=== PATIENT | male | born 1950 | race Caucasian/White ===

== ENCOUNTER 2018-12-04 16:59 | Emergency (ER) | payer MEDICARE ==
--- OUTSIDE RECORDS SUMMARY | 2018-12-04 17:22 | XMS REPORT | Continuity of Care Document ---
:1950 External Reference #:[id number] Author Name AMY Zamorano (transmitted by agent of provider Amol Woody M.D.) Address [address] [place] [address] Care Team Providers Name Role Phone Amol Woody MD - Family Medicine Care Team Information Principal Military Analyst [phone] Problems Active Problems Provider Date Muscle pain Amol Woody M.D. Onset: 05/09/2016 Mixed hyperlipidemia Amol Woody M.D. Onset: 03/13/2018 Essential hypertension Amol Woody M.D. Onset: 03/13/2018 Social History Type Date Description Comments Sex Unknown Tobacco Use Start: Unknown Nonsmoker Tobacco Use Start: Unknown End: Former Cigarette Smoker 1 Unknown Pack Daily Smoking Status Reviewed: 12/04/18 Former Cigarette Smoker 1 Pack Daily ETOH Use Rare Recreational Drug Use Denies Drug Use Tobacco Use Start: Unknown End: Patient is a former smoker Unknown Exercise Type/Frequency Exercises regularly Allergies, Adverse Reactions, Alerts Description No Known Drug Allergies Medications Active Medications SIG Qnty Indications Ordering Provider Date Rosuvastatin Calcium 1 by mouth 90tabs Amol Woody, 03/13/2018 5mg every day M.D. Tablets Metoprolol Succinate 1 by mouth Unknown ER every day 25mg Tablets ER 24HR Tamsulosin HCL 1 by mouth Unknown 0.4mg every day Capsules Aspirin Ec 1 by mouth Unknown 81mg Tablets every day DR History Medications Doxycycline Hyclate 2 by mouth x 1 2caps M79.1 Amol Woody, 2018 - dose M.D. 12/04/2018 100mg Capsules Immunizations Description No Information Available Vital Signs Date Vital Result Comment 12/04/2018 3:53pm BP Systolic 110 mmHg BP Diastolic 70 mmHg Heart Rate 66 /min Body Temperature 97.9 F Respiratory Rate 18 /min O2 % BldC Oximetry 98 % Weight 188.00 lb 03/13/2018 8:02am BP Systolic 136 mmHg BP Diastolic 80 mmHg Heart Rate 60 /min Body Temperature 98.1 F Respiratory Rate 16 /min Height 70 inches 5'10" Weight 191.00 lb BMI (Body Mass Index) 27.4 kg/m2 Results Test Date Facility Test Result H/L Range Note Laboratory test finding 10/23/2018 [facility] PSA Diagnostic 2.617 ng/mL 0-4.0 1 1 Serum levels of PSA measured using the [employer] DXI Hybritech immunoassay should not be interpreted as absolute evidence of the presence or absence of disease. The PSA value should be used in conjunction with other pertinent clinical diagnostic procedures. The values obtained with different assay methods or kits cannot be used interchangeably. Procedures Date Code Description Status 03/05/2013 15182260 Colonoscopy Completed Medical Devices Description No Information Available Encounters Description No Information Available Assessments Date Code Description Provider 12/04/2018 R07.89 Other chest pain AMY Zamorano Plan of Treatment 12/04/2018 - Valarie Han, PAR07.89 Other chest painComments:Sent to [facility] Emergency Room for further evaluation. Patient was offered an ambulance but declined in agreeance to go straight to the Emergency Room. Report was given to [facility] ER physician.Risks of not complying with this plan were discussed with patient including .AllComments:PCMHMedication Management Patient Understands medications he's taking? Yes Are there Barriers to Adherence? No Has the patient been asked about herbal supplements and therapies, and OTC meds? Yes Care Plan1. Patient has been queried about patient's goals/preferences and functional/lifestyle goals at relevant visits. Yes If relevant, describe: N/A2. Treatment goals as explained to the patient: above3. Are there barriers to meeting treatment goals? No If Yes , please describe:4. Self-Management goals as described to the patient: Yes As always, we strongly encourage a healthy diet and making physical activity a part of your every day life. If you have questions about how or where to start, please contact the office. Functional Status Description No Information Available Mental Status Description No Information Available Referrals Description No Information Available
[2018-12-04 17:48] LABS: ABS Eosinophils 0.4 10^3/ul (0-0.6); ABS Lymphocytes 1.7 10^3/ul (1.0-4.8); ABS Monocytes 0.8 10^3/ul (0-0.8); ABS Neutrophils 3.2 10^3/ul (1.5-7.7); Eosinophil % 6.6 %; Hematocrit 45 % (42-52); Hemoglobin 15.5 g/dL (14.0-18.0); Lymphocyte % 27.7 %; Mean Corpuscular HGB Conc 34 g/dL (31-36); Mean Corpuscular Hemoglobin 32 pg (27-31); Mean Corpuscular Volume 93 fL (80-94); Nucleated Red Blood Cells % 0.1; Platelet Count 187 10^3/uL (150-450); Red Blood Count 4.91 10^6 /uL (4.18-5.48); Red Cell Distribution Width 13 % (10-15); White Blood Count 6.1 10^3/uL (3.5-10.8)
[2018-12-04 17:53] LABS: INR 0.98 (0.82-1.09)
[2018-12-04 18:10] LABS: Albumin 4.2 g/dL (3.2-5.2); Albumin/Globulin Ratio 1.7 (1-3); BUN/Creatinine Ratio 18.3 (8-20); Calcium 8.9 mg/dL (8.6-10.3); EGFR African American 85.9 (>60); Globulin 2.5 g/dL (2-4); Potassium 4.7 mmol/L (3.5-5.0); Total Bilirubin 0.8 mg/dL (0.2-1.0); Total Protein 6.7 g/dL (6.4-8.9)
--- NOTE | 2018-12-04 20:47 | ED ---
Throat Pain/Nasal Congestion - HPI Summary HPI Summary: Patient complains of intermittent throat pain 1 month. Pain is worse with exertion, worse when carrying something. History of heartburn. Denies trauma, fever, cough, CP, SOB, N/V/V abdominal pain, change in urine, change in BM. Medical history CAD with cardiac stent 1 placed 7 years ago. Former smoker. - History of Current Complaint Chief Complaint: EDChestPainROMI Time Seen by Provider: 12/04/18 20:11 Hx Obtained From: Patient Onset/Duration: Gradual Onset, Lasting Weeks Associated Signs And Symptoms: Positive: Negative Cough: None - Allergies/Home Medications Allergies/Adverse Reactions: Allergies Allergy/AdvReac Type Severity Reaction Status Date / Time No Known Allergies Allergy Verified 06/27/12 08:31 Home Medications: Home Medications Rosuvastatin Calcium 20 mg PO DAILY 12/04/18 [History Confirmed 12/04/18] PMH/Surg Hx/FS Hx/Imm Hx Endocrine/Hematology History: Denies: Hx Anticoagulant Therapy - plavix, Hx Blood Disorders, Hx Blood Transfusions, Hx Bone Marrow Disease, Hx Diabetes, Hx Systemic Lupus Erythematosus, Hx Sickle Cell Disease, Hx Thyroid Disease, Hx Anemia, Hx Unexplained Bleeding, Other Endocrine/Hematological Disorders Cardiovascular History: Reports: Hx Angina, Hx Coronary Artery Disease, Hx Hypercholesterolemia, Other Cardiovascular Problems/Disorders - stent placement a year and a half ago Denies: Hx Aneurysm, Hx Angioplasty, Hx Auto Implanted Cardiovert Defib, Hx Cardiac Arrest, Hx Cardiomegaly, Hx Congenital Heart Disease, Hx Congestive Heart Failure, Hx Deep Vein Thrombosis, Hx Hypotension, Hx Hypertension, Hx Myocardial Infarction, Hx Pacemaker/ICD, Hx Peripheral Vascular Disease, Hx Rheumatic Fever, Hx Syncope, Hx Valvular Heart Disease Respiratory History: Reports: Hx Seasonal Allergies - mild Denies: Hx Asthma, Hx Chronic Bronchitis, Hx Chronic Obstructive Pulmonary Disease (COPD), Hx Cystic Fibrosis, Hx Lung Cancer, Hx Pleural Effusion, Hx Pneumonia, Hx Pulmonary Edema, Hx Pulmonary Embolism, Hx Sleep Apnea GI History: Denies: Hx Cirrhosis, Hx Crohn's Disease, Hx Diverticulosis, Hx Gall Bladder Disease, Hx Gastroesophageal Reflux Disease, Hx Gastrointestinal Bleed, Hx Hiatal Hernia, Hx Irritable Bowel, Hx Jaundice, Hx Obstructive Bowel, Hx Ileostomy, Hx Pyloric Stenosis, Hx Ulcer, Other GI Disorders History: Denies: Hx Acute Renal Failure, Hx Benign Prostatic Hyperplasia, Hx Chronic Renal Failure, Hx Dialysis, Hx Kidney Infection, Hx Kidney Stones, Other Problems/Disorders Musculoskeletal History: Reports: Hx Bursitis - shoulder left hx of, Hx Tendonitis - bilat elbows Denies: Hx Arthritis, Hx Back Problems, Hx Congenital Bone Abnormalities, Hx Fibromyalgia, Hx Gout, Hx Orthopedic Injury, Hx Osteoporosis, Hx Scoliosis, Other Musculoskeletal History Sensory History: Reports: Hx Contacts or Glasses Denies: Hx Cataracts, Hx Eye Injury, Hx Eye Prosthesis, Hx Glaucoma, Hx Macular Degeneration, Hx Vision Problem, Hx Deafness, Hx Hearing Aid, Hx Hearing Problem, Other Sensory Impairments Opthamlomology History: Reports: Hx Contacts or Glasses Denies: Hx Cataracts, Hx Eye Injury, Hx Eye Prosthesis, Hx Glaucoma, Hx Macular Degeneration, Hx Vision Problem, Other Sensory Impairments Psychiatric History: Denies: Hx Anxiety, Hx Attention Deficit Hyperactivity Disorder, Hx Eating Disorder, Hx Depression, Hx Panic Disorder, Hx Post Traumatic Stress Disorder, Hx Inpatient Treatment, Hx Community Mental Health Tx, Hx Schizophrenia, Hx Bipolar Disorder, Hx Suicide Attempt, Hx of Violent Episodes Against Others, Hx Substance Abuse, Other Psychiatric Issues/Disorders - Surgical History Surgery Procedure, Year, and Place: cardiac stent 2010 - pt unable to locate stent cardhernia repair 2006tonsillectomy as child,. growth removed anterior chest,hernia repair in 2004 Hx Anesthesia Reactions: No Infectious Disease History: No Infectious Disease History: Reports: Hx Hepatitis - Hepatitis A Denies: Hx Clostridium Difficile, Hx Human Immunodeficiency Virus (HIV), Hx Shingles, Hx Tuberculosis, Traveled Outside the [place] in Last 30 Days - Family History Known Family History: Positive: Non-Contributory - Social History Alcohol Use: Weekly Alcohol Amount: 1/ week Substance Use Type: Reports: None Smoking Status (MU): Former Smoker Type: Cigarettes Length of Time of Smoking/Using Tobacco: 40 years intermittently Have You Smoked in the Last Year: No Review of Systems Constitutional: Negative Eyes: Negative Positive: Sore Throat Cardiovascular: Negative Respiratory: Negative Gastrointestinal: Negative Genitourinary: Negative Musculoskeletal: Negative Skin: Negative Neurological: Negative Psychological: Normal All Other Systems Reviewed And Are Negative: Yes Physical Exam Triage Information Reviewed: Yes Vital Signs On Initial Exam: Initial Vitals Temp Pulse Resp BP Pulse Ox 97.5 F 57 20 143/76 100 12/04/18 17:07 12/04/18 17:07 12/04/18 17:07 12/04/18 17:07 12/04/18 17:07 Vital Signs Reviewed: Yes Appearance: Positive: Well-Appearing Skin: Positive: Warm Head/Face: Positive: Normal Head/Face Inspection Eyes: Positive: Normal ENT: Positive: Normal ENT inspection Neck: Positive: Supple Respiratory/Lung Sounds: Positive: Clear to Auscultation Cardiovascular: Positive: Normal Abdomen Description: Positive: Nontender Musculoskeletal: Positive: Normal Neurological: Positive: Normal Psychiatric: Positive: Normal AVPU Assessment: Alert - Dougherty Coma Scale Best Eye Response: 4 - Spontaneous Best Motor Response: 6 - Obeys Commands Best Verbal Response: 5 - Oriented Coma Scale Total: 15 Procedures - Sedation Patient Received Moderate/Deep Sedation with Procedure: No Diagnostics - Vital Signs Vital Signs Temp Pulse Resp BP Pulse Ox 12/04/18 19:07 98.3 F 63 17 125/74 99 12/04/18 17:07 97.5 F 57 20 143/76 100 - Laboratory Lab Results: Lab Results 12/04/18 12/04/18 12/04/18 Range/Units 17:41 17:41 17:41 WBC 6.1 (3.5-10.8) 10^3/uL RBC 4.91 (4.18-5.48) 10^6 /uL Hgb 15.5 (14.0-18.0) g/dL Hct 45 (42-52) % MCV 93 (80-94) fL MCH 32 H (27-31) pg MCHC 34 (31-36) g/dL RDW 13 (10-15) % Plt Count 187 (150-450) 10^3/uL MPV 7.0 L (7.4-10.4) fL Neut % (Auto) 52.7 % Lymph % (Auto) 27.7 % [place] % (Auto) 12.6 % Eos % (Auto) 6.6 % Baso % (Auto) 0.4 % Absolute Neuts (auto) 3.2 (1.5-7.7) 10^3/ul Absolute Lymphs (auto) 1.7 (1.0-4.8) 10^3/ul Absolute Monos (auto) 0.8 (0-0.8) 10^3/ul Absolute Eos (auto) 0.4 (0-0.6) 10^3/ul Absolute Basos (auto) 0.0 (0-0.2) 10^3/ul Absolute Nucleated RBC 0.0 10^3/ul Nucleated RBC % 0.1 INR (Anticoag Therapy) 0.98 (0.82-1.09) Sodium 138 (135-145) mmol/L Potassium 4.7 (3.5-5.0) mmol/L Chloride 106 (101-111) mmol/L Carbon Dioxide 29 (22-32) mmol/L Anion Gap 3 (2-11) mmol/L BUN 19 (6-24) mg/dL Creatinine 1.04 (0.67-1.17) mg/dL Est GFR ( Amer) 85.9 (>60) Est GFR (Non-Af Amer) 71.0 (>60) BUN/Creatinine Ratio 18.3 (8-20) Glucose 93 (70-100) mg/dL Calcium 8.9 (8.6-10.3) mg/dL Total Bilirubin 0.80 (0.2-1.0) mg/dL AST 17 (13-39) U/L ALT 11 (7-52) U/L Alkaline Phosphatase 68 (34-104) U/L Troponin I 0.00 (<0.04) ng/mL Total Protein 6.7 (6.4-8.9) g/dL Albumin 4.2 (3.2-5.2) g/dL Globulin 2.5 (2-4) g/dL Albumin/Globulin Ratio 1.7 (1-3) 12/04/18 Range/Units 19:58 WBC (3.5-10.8) 10^3/uL RBC (4.18-5.48) 10^6 /uL Hgb (14.0-18.0) g/dL Hct (42-52) % MCV (80-94) fL MCH (27-31) pg MCHC (31-36) g/dL RDW (10-15) % Plt Count (150-450) 10^3/uL MPV (7.4-10.4) fL Neut % (Auto) % Lymph % (Auto) % [place] % (Auto) % Eos % (Auto) % Baso % (Auto) % Absolute Neuts (auto) (1.5-7.7) 10^3/ul Absolute Lymphs (auto) (1.0-4.8) 10^3/ul Absolute Monos (auto) (0-0.8) 10^3/ul Absolute Eos (auto) (0-0.6) 10^3/ul Absolute Basos (auto) (0-0.2) 10^3/ul Absolute Nucleated RBC 10^3/ul Nucleated RBC % INR (Anticoag Therapy) (0.82-1.09) Sodium (135-145) mmol/L Potassium (3.5-5.0) mmol/L Chloride (101-111) mmol/L Carbon Dioxide (22-32) mmol/L Anion Gap (2-11) mmol/L BUN (6-24) mg/dL Creatinine (0.67-1.17) mg/dL Est GFR ( Amer) (>60) Est GFR (Non-Af Amer) (>60) BUN/Creatinine Ratio (8-20) Glucose (70-100) mg/dL Calcium (8.6-10.3) mg/dL Total Bilirubin (0.2-1.0) mg/dL AST (13-39) U/L ALT (7-52) U/L Alkaline Phosphatase (34-104) U/L Troponin I 0.00 (<0.04) ng/mL Total Protein (6.4-8.9) g/dL Albumin (3.2-5.2) g/dL Globulin (2-4) g/dL Albumin/Globulin Ratio (1-3) Result Diagrams: 12/04/18 17:41 12/04/18 17:41 Lab Statement: Any lab studies that have been ordered have been reviewed, and results considered in the medical decision making process. EENT Course/Dx - Course Course Of Treatment: Patient complains of intermittent throat pain 1 month. Pain is worse with exertion, worse when carrying something. History of heartburn. Denies trauma, fever, cough, CP, SOB, N/V/V abdominal pain, change in urine, change in BM. Medical history CAD with cardiac stent 1 placed 7 years ago. Former smoker. Vital signs within normal limits. Labs unremarkable. Serial troponins negative. EKG sinus rhythm, rate of 58, partial RBBB. Patient advised to follow up with ENT. Patient understands and approves of plan. - Diagnoses Provider Diagnoses: Throat pain, Heart burn Discharge ED - Sign-Out/Discharge Documenting (check all that apply): Patient Departure - Discharge Plan Condition: Stable Disposition: HOME Prescriptions: Omeprazole 20 mg PO DAILY 30 Days #30 capsule. Patient Education Materials: Gastroesophageal Reflux Disease (ED) Referrals: Amol Woody MD [Primary Care Provider] - Cristian Licea MD [Medical Doctor] - Adán Cardona DO [Medical Doctor] - Livia Avila MD [Medical Doctor] - Additional Instructions: Take omeprazole daily for heartburn symptoms. Follow up with ENT Dr. Licea for further evaluation of recurrent throat pain. Follow-up with your fiction and nonfiction author Dr. Cardona for further evaluation of increasing shortness of breath with exertion. - Billing Disposition and Condition Condition: STABLE Disposition: Home - Attestation Statements Provider Attestation: I was available for consult. This patient was seen by the SALLIE. The patient was not presented to, seen by, or examined by me. Antwon Harper MD
[2018-12-04 20:59] VITALS: BP 143/82
== END 2018-12-04 21:00 | disposition home or self-care (01) ==
LOC: ED 16:59
DX: R07.0 Pain in throat (principal); R12 Heartburn; I25.10 Atherosclerotic heart disease of native coronary artery without angina pectoris; E78.00 Pure hypercholesterolemia, unspecified; Z95.5 Presence of coronary angioplasty implant and graft; Z87.891 Personal history of nicotine dependence; Z79.82 Long term (current) use of aspirin; Z79.899 Other long term (current) drug therapy
CPT/HCPCS: 36415; 80053; 84484; 85025; 85610; 93005; 99282

== ENCOUNTER → 2019-03-07 08:07 | Day surgery (SDC) | payer MEDICARE ==
[~2019-03-07 08:07] MED LIST: Diazepam TAB(*) 5 MG ONE; Heparin 2 UNITS/ML IVPREMIX* 2,000 ML IV ONE; Heparin(*) 1000 UNIT/ML 10 ML VIAL CATH LAB IV ONE; Iohexol 350 (CONTRAST) 200 ML MDV IV ONE; Lidocaine 1% INJ* 10 MG/ML 30 ML SDV ONE; Midazolam* 1 MG/ML 5 ML VIAL (5 MG) ONE; NS 0.9% 1000 ML** 1,000 ML IV SCH; VERAPAMIL 2.5 MG/ML 2 ML VIAL ** 5 mg/2 ml ONE; diPHENhydraMINE PO* 25 MG ONE; fentaNYL* 50 MCG/ML 2 ML VIAL (100 MCG VIAL) ONE; nitroGLYCERIN DRIP* 25,000 MCG/250 ML BTL ONE
[2019-03-07 12:51] VITALS: BP 113/65
--- NOTE | 2019-03-07 16:42 | CATH ---
CC: Dr. Adán Cardona, [facility]; Dr. Amol Woody CARDIAC CATHETERIZATION REPORT: DATE OF PROCEDURE: 03/07/19 INDICATION FOR PROCEDURE: The patient with recurrent ventricular tachycardia on exercise stress test with history of throat discomfort correlating with ventricular ectopic activity with history of prior intervention into the mid LAD with an abnormal fraction of flow reserve, assess for the presence of progressive coronary artery disease. PROCEDURES: Coronary arteriography, left heart catheterization, left ventriculography. CONSENT: The patient was interviewed and examined in the [facility] where the risks and benefits were explained. He understood them and wished to proceed. APPROACH UTILIZED: The right radial artery was assessed by ultrasound and found to be acceptable in size and as such this was the approach utilized. PRECARDIAC CATHETERIZATION LABORATORY RESULTS: Hemoglobin and hematocrit of 15.4 and 45 with a platelet count 191,000. BUN of 25, creatinine 0.96. Sodium 138, potassium 5.0, chloride 104, bicarb 29. EQUIPMENT UTILIZED: 1. Right radial artery sheath was a 6-Eritrean Glidesheath Slender. 2, Diagnostic coronary catheter was a 5-Eritrean TIG-4 catheter. 3. Diagnostic guidewire was a 260 length Victor curved guidewire as well as a 145- cm length Wholey wire. 4. The left heart catheterization catheter was a 5-Erit[place]an PIG Performa radial catheter. 5. The closure device utilized was a regular length Vasc-Band. DESCRIPTION OF PROCEDURE: The patient was brought to the cardiovascular laboratory where formal time-out was performed. He was prepped and draped in sterile fashion and under ultrasound guidance, the right radial artery was cannulated and a sheath was placed. Radial artery cocktail was administered. Coronary arteriography was then performed followed by left heart catheterization , left ventriculography. At the end of the case, catheter and sheath were removed and hemostasis was obtained with the Vasc-Band. Of note, it was patent hemostasis with a reverse Barbeau of B. The total contrast used was 90 cc of Omnipaque dye. The radiation exposure included 5.2 minutes of fluoro time. The air kerma radiation was 1241 milligray. The DAP radiation was 7056 microgray per meter squared. RESULTS: LEFT VENTRICULOGRAPHY: Performed in the CHENG projection revealed symmetrical contraction of the left ventricle with no focal wall motion abnormalities. The overall ejection fraction appeared to be 60%. CORONARY ARTERIOGRAPHY: A. Left coronary artery. 1. Left main - widely patent. 2. Left anterior descending artery - there was mild reduction of caliber in the proximal portion of the left anterior descending artery with an area of 35% to 40% narrowing seen. The mid stented area in the left anterior descending artery showed 35% in-stent restenosis in its mid segment. There was AYSE-3 flow throughout the vessel. The LAD supplied a high 1st diagonal branch followed by a bifurcating 2nd diagonal branch, which was large in nature paralleling the LAD. There were mild luminal irregularities in this vessel with a 25% to 30% stenosis seen in its proximal segment. 3. Circumflex artery - a nondominant vessel supplying a thin first obtuse marginal branch, followed by second thin obtuse marginal branch. There was a moderate sized third obtuse marginal branch and it ended in a bifurcating , low lying obtuse marginal branch. There was no significant obstruction seen throughout the course of this vessel. B. Right coronary artery - a dominant vessel supplying the PDA and multiple initial thin posterior left ventricular branches with a moderate fourth and fifth size posterior left ventricular branch. There were minimal luminal irregularities seen throughout the right coronary artery system. Of note, the PDA and the last posterior left ventricular branch were fairly large caliber vessels extending the whole length of the inferior to apical region. OVERALL ASSESSMENT: Normal left ventricular systolic function was noted. No significant focal wall motion abnormality seen. Mild to moderate in-stent restenosis in the mid segment as described above. No significant stenosis seen throughout the coronary system. This information was shared with Dr. Adán Cardona, the patient 's primary tape librarian, who will be following up the patient for a wound check next week. [id number]/[facility] #: [id number] [facility]
== END | disposition home or self-care (01) ==
LOC: CHICATH 08:07
PROVIDERS: ATTEND Internal Medicine Cardiovascular Disease
DX: R07.9 Chest pain, unspecified (principal); R06.02 Shortness of breath; I25.10 Atherosclerotic heart disease of native coronary artery without angina pectoris; Z95.5 Presence of coronary angioplasty implant and graft; I45.10 Unspecified right bundle-branch block; E78.5 Hyperlipidemia, unspecified; I49.3 Ventricular premature depolarization; I47.2 Ventricular tachycardia; F17.201 Nicotine dependence, unspecified, in remission
CPT/HCPCS: 76937; 93458; A9270-GY; J1644; J2250; J3010